=== PATIENT | male | born 1995 | race African-American/Black ===

== ENCOUNTER 2017-08-09 01:10 | Emergency (ER) | payer SELFPAY ==
[2017-08-09 01:20] VITALS: PULSE 74; RESP 16; O2SAT 96
--- NOTE | 2017-08-09 01:21 | EDPHY ---
H & P Time Seen by Provider: 08/09/17 01:10 HPI/ROS: CHIEF COMPLAINT: Status post Tazed, head injury HISTORY OF PRESENT ILLNESS: 22-year-old male presents to the emergency department by ambulance with the [employer] complaining of a headache. The patient was taken down by the police officers and hit his head on the ground. He is complaining of headache and neck pain. He also was then subsequently Tazed. He denies loss of consciousness. Denies visual changes. No nausea or vomiting. No chest pain or difficulty breathing. No abdominal pain. Denies injury to his upper or lower extremities. REVIEW OF SYSTEMS: Constitutional: No fever, no chills. Eyes: No double or blurry vision. ENT: No sore throat. Respiratory: No cough, no shortness of breath. Cardiac: No chest pain. Gastrointestinal: No abdominal pain, vomiting or diarrhea. Genitourinary: No dysuria. Musculoskeletal: Neck pain as above. No back pain. Skin: No rashes. Neurological: headache. (Jaylin Harper) Past Medical/Surgical History: Negative (Jaylin Harper) Social History: Single (Jaylin Harper) Physical Exam: General Appearance: Alert, no distress. The mentating normally and answering questions appropriately. He has a hematoma noted to the left occiput of the scalp. No abrasions or puncture wounds appreciated. Eyes: Pupils equal and round. Extraocular motions are all intact. ENT: Mouth: Mucous membranes moist. Respiratory: No wheezing, rhonchi, or rales, lungs are clear to auscultation. Cardiovascular: Regular rate and rhythm. Gastrointestinal: Abdomen is soft and nontender, no masses, no rebound or guarding, bowel sounds normal. Neurological: Alert and oriented x 3, cranial nerves II through XII grossly intact Skin: Warm and dry, no rashes. Area of redness where he was Tazed in the left upper back. Musculoskeletal: Mild diffuse tenderness to palpate along his cervical spine. Nontender to palpate along the thoracic or lumbar spine. Extremities: Full range of motion and no peripheral edema. Psychiatric: Patient is oriented X 3, there is no agitation. (Jaylin Harper) Constitutional: Initial Vital Signs Temperature (C) 36.6 C 08/09/17 01:16 Heart Rate 74 08/09/17 01:16 Respiratory Rate 16 08/09/17 01:16 Blood Pressure 114/74 08/09/17 01:16 O2 Sat (%) 96 08/09/17 01:16 O2 Delivery Mode Room Air Allergies/Adverse Reactions: No Known Allergies Allergy (Unverified 08/09/17 01:22) Home Medications: Medication Instructions Recorded NK [No Known Home Meds] 08/09/17 Medical Decision Making - Diagnostics Imaging: Discussed imaging studies w/ director sanitation bureau Radiologist - Diagnostics Imaging Results: CT imaging of the head and cervical spine was reported to me by Dr. Goins at 1: 53 a.m. and revealed no fractures or evidence of intracranial bleeding. (Jaylin Harper) ED Course/Re-evaluation: 22-year-old male presents to the emergency department with head injury and neck pain. I discussed the pros and cons including radiation exposure of obtaining CT scan of his head and cervical spine and the patient verbalized understanding and agreed. CT imaging of the head and cervical spine were negative. Because the patient was Tazed, EKG was obtained which revealed normal sinus rhythm. Patient has been medically cleared and will be discharged with [employer] to snf. Case was discussed with Dr. Mayfield, secondary supervising physician, who did not directly evaluate the patient but agrees with treatment and plan. (Jaylin Harper) Differential Diagnosis: Head injury including but not limited to concussion, skull fracture, intraparenchymal contusion, subarachnoid, subdural and epidural hematoma. Neck pain including but not limited to muscular pain, herniated disc, spine fracture (Jaylin Harper) Other Provider: PHYSICIAN DOCUMENTATION: The patient was evaluated and managed by the Physician Graphics Intern. My co- signature indicates that I have reviewed this chart and I agree with the findings and plan of care as documented. I am the secondary supervising physician. (Alma Mayfield) Departure - Departure Disposition: Law Enforcement/Court/Intermediate Clinical Impression: Head injury Qualifiers: Encounter type: initial encounter Qualified Code(s): S09.90XA - Unspecified injury of head, initial encounter Cervical strain Qualifiers: Encounter type: initial encounter Qualified Code(s): S16.1XXA - Strain of muscle, fascia and tendon at neck level, initial encounter Condition: Good Instructions: Cervical Strain (ED), Head Injury (ED) Additional Instructions: You have no bleeding in her brain. No cervical spine fractures. Medically cleared for snf.
--- NOTE | 2017-08-09 01:33 | CPEKG ---
Heart Rate: 67 RR Interval: 896 P-R Interval: 172 QRSD Interval: 102 QT Interval: 364 QTC Interval: 385 P Tuttle: 12 QRS Tuttle: -31 T Wave Tuttle: 27 EKG Severity - ABNORMAL ECG - EKG Impression: SINUS RHYTHM EKG Impression: LEFT AXIS DEVIATION Electronically Signed By: Alma Mayfield 10-Aug-2017 05:40:22
[2017-08-09 01:58] VITALS: BP 135/74; TEMP 98.2
== END 2017-08-09 01:58 ==
DX: S16.1XXA Strain of muscle, fascia and tendon at neck level, initial encounter (principal); S09.90XA Unspecified injury of head, initial encounter; W22.8XXA Striking against or struck by other objects, initial encounter